=== PATIENT | female | born 1945 | race Caucasian/White ===

== ENCOUNTER 2017-11-19 10:34 | Outpatient (CLI) | payer MEDICARE, BC ==
--- NOTE | 2017-11-19 16:01 | NM ---
WHOLE BODY BONE SCAN WITH TRIPLE PHASE IMAGING THROUGH THE KNEES 11/19/17 HISTORY: Pain in the left knee. Presence of left artificial knee joint. RADIOPHARMACEUTICAL: 32 millicuries technetium 99m MDP injected intravenously. FINDINGS: There was symmetric blood flow to both knees. Postop changes of left knee arthroplasty are present. T here is increased uptake in the right knee on the delayed images consistent with degenerative changes . No abnormal tracer localization seen in the left knee. Whole body images demonstrate increased upta ke consistent with degenerative change in the shoulders, elbows, wrists, hands, right ankle and both feet. Tracer excretion of the kidneys are within normal limits. IMPRESSION: No evidence of infection or loosening involving the left knee prosthesis. POS: [facility]
== END 2017-11-19 10:35 | disposition home or self-care (01) ==
LOC: NM 10:34
PROVIDERS: ATTEND Family Medicine Sports Medicine
DX: M25.562 Pain in left knee (principal); Z96.652 Presence of left artificial knee joint
CPT/HCPCS: 78315; A9503

== ENCOUNTER 2019-01-16 13:51 | Outpatient (CLI) | payer MEDICARE, BC ==
--- NOTE | 2019-01-16 14:36 | BD ---
BONE DENSITOMETRY USING DEXA: Date: 01/16/19 HISTORY: Postmenopausal screening for osteoporosis. FINDINGS: Lumbar Spine: BMD (g/cm2) L1 0.846 T-Score: -1.3 Z-Score: 0.7 L2 0.857 T-Score: -1.6 Z-Score: 0.7 L3 0.958 T-Score: -1.1 Z-Score: 1.2 L4 1.002 T-Score: -0.5 Z-Score: 1.9 L1-L4 0.918 T-Score: -1.2 Z-Score: 1.1 Femoral Neck: 0.529 T-Score: -2.9 Z-Score: -0.9 Total Femur: 0.721 T-Score: -1.8 Z-Score: -0.2 The 10 year fracture risk for a major osteoporotic fracture is 29% and for a hip fracture is 15%. IMPRESSION: Osteoporosis. POS: [facility]
== END 2019-01-16 13:52 | disposition home or self-care (01) ==
LOC: BICMAMMO 13:51
PROVIDERS: ATTEND Internal Medicine Rheumatology
DX: M81.0 Age-related osteoporosis without current pathological fracture (principal)
CPT/HCPCS: 77080

== ENCOUNTER 2019-10-24 11:17 | Outpatient (CLI) | payer MEDICARE, BC ==
--- NOTE | 2019-10-24 15:25 | MMO ---
Bilateral MAMMO Bilat Screen [facility]. CLINICAL HISTORY: Patient is 74 years old and is seen for screening. The patient has the following family history of breast cancer: niece. The patient has a history of malignant (generic) in the right breast at age 68. The patient has a history of right Lumpectomy at age 68 - malignant - TRIPLE NEGATIVE. VIEWS: The views performed were: bilateral craniocaudal with tomosynthesis and bilateral mediolateral oblique with tomosynthesis. FILMS COMPARED: The present examination has been compared to prior imaging studies performed at [facility] on 12/09/2015, 06/16/2016, 06/02/2017 and 06/01/2018. This study has been interpreted with the assistance of computer-aided detection. MAMMOGRAM FINDINGS: There are scattered fibroglandular densities. Right biopsy clip. Benign calcifications are noted bilaterally. There are no suspicious masses, suspicious calcifications, or new areas of architectural distortion. IMPRESSION: THERE IS NO MAMMOGRAPHIC EVIDENCE OF MALIGNANCY. A ROUTINE FOLLOW-UP MAMMOGRAM IN 1 YEAR IS RECOMMENDED. THE RESULTS OF THIS EXAM WERE SENT TO THE PATIENT. ACR BI-RADS Category 2 - Benign finding MAMMOGRAPHY NOTE: 1. A negative mammogram report should not delay a biopsy if a dominant of clinically suspicious mass is present. 2. Approximately 10% to 15% of breast cancers are not detected by mammography. 3. Adenosis and dense breasts may obscure an underlying neoplasm. Reported by: JOHN VYAS MD Electonically Signed: [id number]
== END 2019-10-24 11:18 | disposition home or self-care (01) ==
LOC: BICMAMMO 11:17
PROVIDERS: ATTEND Obstetrics & Gynecology
DX: Z12.31 Encounter for screening mammogram for malignant neoplasm of breast (principal); Z85.3 Personal history of malignant neoplasm of breast; Z80.3 Family history of malignant neoplasm of breast; Z98.890 Other specified postprocedural states
CPT/HCPCS: 77063; 77067

== ENCOUNTER 2020-10-25 14:02 | Outpatient (CLI) | payer MEDICARE, BC | END 2020-10-25 14:03 | disposition home or self-care (01) | LOC: BICMAMMO 14:02 | PROVIDERS: ATTEND Obstetrics & Gynecology | DX: Z12.31 Encounter for screening mammogram for malignant neoplasm of breast (principal) | CPT/HCPCS: 77063; 77067 ==

== ENCOUNTER 2021-10-27 12:30 | Outpatient (CLI) | payer MEDICARE, BC | END 2021-10-27 12:31 | disposition home or self-care (01) | LOC: BICMAMMO 12:30 | PROVIDERS: ATTEND Obstetrics & Gynecology | DX: Z12.31 Encounter for screening mammogram for malignant neoplasm of breast (principal); Z85.3 Personal history of malignant neoplasm of breast; Z80.3 Family history of malignant neoplasm of breast | CPT/HCPCS: 77063; 77067 ==